=== PATIENT | male | born 1995 | race Caucasian/White ===

== ENCOUNTER 2023-06-17 09:58 | Outpatient (RCR) | payer OTHER ==
[~2023-06-17 09:58] MED LIST: SEROQUEL 1100 MG/TAB PO
== END 2023-07-14 ==
LOC: WSOH
DX: H57.12 Ocular pain, left eye (principal); H91.90 Unspecified hearing loss, unspecified ear; Y99.0 Civilian activity done for income or pay

== ENCOUNTER 2023-07-20 14:42 | Emergency (ER) | payer SELFPAY ==
[~2023-07-20] VITALS: Ht 195.6 cm; Wt 100.0 kg
[2023-07-20 14:52] VITALS: BP 124/81; TEMP 98.1
[2023-07-20 16:32] VITALS: PULSE 97
== END 2023-07-20 16:35 | disposition home or self-care (01) ==
LOC: COL.ER 14:42
DX: J10.1 Influenza due to other identified influenza virus with other respiratory manifestations (principal)